=== PATIENT | female | born 1975 | race Caucasian/White ===

== ENCOUNTER 2018-04-08 19:35 | Emergency (ER) | payer MEDICAID ==
[~2018-04-08] VITALS: Ht 157.5 cm; Wt 93.2 kg
[2018-04-08 19:43] VITALS: Ht 157.5 cm; Wt 93.2 kg
[2018-04-08] MEDS ORDERED: GABAPENTIN100 MG PO (19:44)
[2018-04-08] MEDS ORDERED: ULTRAM50 MG PO (19:44)
[2018-04-08] MEDS ORDERED: PROTONIX40 MG PO (19:45)
[2018-04-08] MEDS ORDERED: ATIVAN1 MG PO (19:45)
[2018-04-08 22:37] LABS: HCG URINE NEGATIVE (NEGATIVE)
[2018-04-08 22:40] LABS: APPEARANCE CLEAR (CLEAR); BILIRUBIN NEGATIVE (NEGATIVE); COLOR YELLOW (YELLOW); GLUCOSE NEGATIVE (NEGATIVE); KETONE NEGATIVE (NEGATIVE); NITRITE NEGATIVE (NEGATIVE); PROTEIN NEGATIVE (NEGATIVE); UROBILINOGEN NORMAL (NORMAL)
[2018-04-08 22:41] LABS: BACTERIA FEW /hpf (NONE SEEN); RED CELLS - URINE 0-5 /hpf (0-5); WHITE CELLS - URINE 0-5 /hpf (0-5)
[2018-04-08 22:42] LABS: CALCIUM OXALATE CRYSTALS 0-5 /hpf (NONE SEEN)
[2018-04-08 23:09] LABS: UDS - AMPHET NEGATIVE QUAL (NEGATIVE); UDS - BARB NEGATIVE QUAL (NEGATIVE); UDS - BENZO NEGATIVE QUAL (NEGATIVE); UDS - COCAINE NEGATIVE QUAL (NEGATIVE); UDS - OPIATE NEGATIVE QUAL (NEGATIVE); UDS - PCP NEGATIVE QUAL (NEGATIVE); UDS - THC POSITIVE QUAL (NEGATIVE)
[2018-04-08 23:15] LABS: BASOPHILS 0.3 % (0-2); EOSINOPHILS 2.8 % (0-7); HEMATOCRIT 40.3 % (36.0-48.0); HEMOGLOBIN 13.8 g/dL (12-16); IMMATURE GRANULOCYTES 0.3 % (0-5); LYMPHOCYTES 33.6 % (15-50); MCH 31.7 pg (26.0-34.0); MCHC 34.2 g/dL (31.0-37.0); MCV 92.4 fL (80.0-100.0); MEAN PLATELET VOLUME 10.4 fL (7.4-10.4); MONOCYTES 6.7 % (2-11); NEUTROPHILS 56.3 % (40-80); PLATELET COUNT 247 10x3/uL (130-400); RBC 4.36 10x6/uL (4.00-5.40); RDW 11.9 % (11.5-14.5); WBC 11.9 10x3/uL (4.8-10.8)
[2018-04-08 23:33] LABS: ALBUMIN 3.6 g/dL (3.4-5.0); ALKALINE PHOSPHATASE 49 U/L (46-116); ALT (SGPT) 32 U/L (10-68); BILIRUBIN - TOTAL 0.22 mg/dL (0.2-1.3); CALC OSMOLALITY 278 mosm/kg (275-300); CALCIUM 8.8 mg/dL (8.5-10.1); CHLORIDE - SERUM 102 mmol/L (98-107); CREATININE - SERUM 0.7 mg/dL (0.6-1.3); GLUCOSE 140 mg/dL (74-106); PROTEIN - SERUM 7.1 g/dL (6.4-8.2); SODIUM 139 mmol/L (136-145); UREA NITROGEN 9 mg/dL (7-18); eGFR NON AFRICAN AMERICAN > 90 mL/min (90-120)
[2018-04-09] MEDS ORDERED: DICLOFENAC SODI50 MG PO (01:13)
[2018-04-09 01:45] VITALS: BP 136/80
== END 2018-04-09 01:45 | disposition home or self-care (01) ==
LOC: D.ER 19:35
PROVIDERS: Family Medicine
DX: N93.8 Other specified abnormal uterine and vaginal bleeding (principal); R10.31 Right lower quadrant pain; I10 Essential (primary) hypertension; F17.200 Nicotine dependence, unspecified, uncomplicated

== ENCOUNTER 2018-08-29 00:50 | Observation (INO) | payer SELFPAY ==
[2018-08-29] VITALS (11 sets, daily range): BP systolic 105–149; BP diastolic 58–85; Ht 157.5 cm; Wt 89.5 kg
[~2018-08-29] VITALS: Ht 157.5 cm; Wt 89.5 kg
[~2018-08-29 00:50] MED LIST: ATIVAN1 MG PO; DICLOFENAC SODI50 MG PO; GABAPENTIN100 MG PO; PROTONIX40 MG PO; ULTRAM50 MG PO
[2018-08-29 01:23] LABS: BASOPHILS 0.4 % (0-2); EOSINOPHILS 2.9 % (0-7); HEMATOCRIT 43.1 % (36.0-48.0); HEMOGLOBIN 14.8 g/dL (12-16); IMMATURE GRANULOCYTES 0.1 % (0-5); LYMPHOCYTES 35.5 % (15-50); MCH 30.7 pg (26.0-34.0); MCHC 34.3 g/dL (31.0-37.0); MCV 89.4 fL (80.0-100.0); MONOCYTES 6.5 % (2-11); NEUTROPHILS 54.6 % (40-80); PLATELET COUNT 229 10x3/uL (130-400); RBC 4.82 10x6/uL (4.00-5.40); WBC 11.2 10x3/uL (4.8-10.8)
[2018-08-29 01:52] LABS: APPEARANCE CLEAR (CLEAR); BILIRUBIN NEGATIVE (NEGATIVE); COLOR YELLOW (YELLOW); GLUCOSE NEGATIVE (NEGATIVE); KETONE NEGATIVE (NEGATIVE); NITRITE NEGATIVE (NEGATIVE); PROTEIN NEGATIVE (NEGATIVE); SPECIFIC GRAVITY 1.015 (1.005-1.020); UROBILINOGEN NORMAL (NORMAL)
[2018-08-29 01:53] LABS: HCG URINE NEGATIVE (NEGATIVE)
[2018-08-29 02:04] LABS: ALBUMIN 3.8 g/dL (3.4-5.0); ALKALINE PHOSPHATASE 41 U/L (46-116); ALT (SGPT) 28 U/L (10-68); BILIRUBIN - TOTAL 0.31 mg/dL (0.2-1.3); CALC OSMOLALITY 280 mosm/kg (275-300); CALCIUM 8.3 mg/dL (8.5-10.1); CARBON DIOXIDE 22.6 mmol/L (21.0-32.0); CHLORIDE - SERUM 106 mmol/L (98-107); CREATININE - SERUM 0.8 mg/dL (0.6-1.3); GLUCOSE 124 mg/dL (74-106); POTASSIUM - SERUM 3.9 mmol/L (3.5-5.1); PROTEIN - SERUM 6.9 g/dL (6.4-8.2); SODIUM 141 mmol/L (136-145); UREA NITROGEN 11 mg/dL (7-18); eGFR NON AFRICAN AMERICAN 84 mL/min (90-120)
[2018-08-29 02:07] LABS: AMYLASE - SERUM 24 U/L (25-115); LIPASE 92 U/L (73-393); TROPONIN-I < 0.017 ng/mL (0.000-0.060)
--- NOTE | 2018-08-29 03:18 | NUR ---
PT GIVEN WARM BLANKETS.
--- NOTE | 2018-08-29 05:25 | NUR ---
ULTRASOUND AT PT'S BEDSIDE TO DO STUDY.
[2018-08-29 07:02] LABS: INR 0.99 (0.85-1.17); PROTIME 12.6 SECONDS (11.6-15.0)
--- NOTE | 2018-08-29 07:50 | NUR ---
Pt received by wheelchair from ER. she is awake/alert and able to walk to bathroom and change into hospital gown. Sig other is at her side.
[2018-08-29] MEDS ORDERED: METFORMIN HCL500 M1 PO (07:53)
--- NOTE | 2018-08-29 08:00 | NUR ---
Pt turns self on to right side, state that feels better when some kind of pressure is applied. States that she began hurting yesterday midmorning and pain has continued. shows that lower right quad and groin area is where she feels a sharp stabbing pain that she rates at 8/10. Area is soft to touch and denies pain with touch.VSS as charted on flowsheet, IV to right AC with NS infusing at 125ml/hr, pt instructed to keep arm straight otherwise fluid would not infuse. Sig other ask when surgery would happen and expresses his frustration that would not be immediate stating that they have been here in ER since 0100 and why should she have hurt any longer. He does state he understands that it is out of Dr Park or Nurses control. Pt sleeping now, will return to finish assessment.
--- NOTE | 2018-08-29 09:37 | NUR ---
IV to right AC continue to alarm occ. Pt agreeable to having IV resited. Attempted by this rn to R hand with 20gauge but unsuccessful. Arcadio rn to room per nurses request.
--- NOTE | 2018-08-29 09:45 | NUR ---
IV RESITED TO R WRIST PER lIiana JAUREGUI RN, 20GAUGE CATH USED AND NS INFUSING ORDERED.
--- NOTE | 2018-08-29 09:50 | NUR ---
IV TO RIGHT AC REMOVED WITH CATH INTACT.
--- NOTE | 2018-08-29 11:45 | NUR ---
CONSENTS FOR SURGERY, ANESTHESIA AND BLOOD OBTAINED
--- NOTE | 2018-08-29 11:47 | NUR ---
warm blanket provided per pt request. she places it on her abdomen. rates pain at 8/10.
--- NOTE | 2018-08-29 11:56 | NUR ---
PAIN MED OFFERED AND EXPLAINED ROUTE OF DELIVERY. SHE IS AGREEABLE AND TURNS TO HER LEFT SIDE. DEMEROL/PHENERGAN GIVEN IM ORDERED AND SCANNED TO EMAR. PT SPOUSE LEAVES ROOM AFTER PAIN MED HAS BEEN GIVEN, REQUESTING THAT HE BE CALLED BEFORE SHE IS TAKEN TO SURGERY.
--- NOTE | 2018-08-29 12:18 | NUR ---
DR BUCHANAN AT BEDSIDE TALKING WITH PT ABOUT US/CT FINDINGS AND WHEN SHE MAY BE TAKEN TO SURGERY. MD GIVES PATIENT OPTION OF REMAINING NPO AND DOING PROCEDURE WHEN OR WAS AVAILABLE LETTING HER KNOW THAT COULD BE LATER TONIGHT, OR WAITING UNTIL AM TO PROCEDE WHICH THEN SHE WOULD BE ABLE TO EAT AND BE NPO AFTER MIGNIGHT. PT STATES IF PAIN IS KEPT UNDER CONTROL SHE WOULD PREFER SOONER RATHER THAN LATER AND UNDERSTANDS THAT SHE CANNOT EAT OR DRINK UNTIL AFTER PROCEDURE. NEW ORDERS RECEIVED TO CHANGE IV FLUIDS AND ALLOW PT TO HAVE GLYCERIN SWABS DESIRED.
--- NOTE | 2018-08-29 13:05 | NUR ---
PT NOTED TO BE RESTING WITH EYES CLOSED AND RESP EVEN, NO DISTRESS NOTED. LEFT UNDISTURBED AT THIS TIME WITH SIDE RAILS UP X 2 AND CALL LIGHT WITH IN HER REACH.
--- NOTE | 2018-08-29 14:45 | NUR ---
FAMILY MEMBER TO DESK REQUESTING NURSE TO ROOM, UPON ENTERING ROOM PT QUESTIONS IF THERE HAD BEEN AN UPDATE FROM SURGERY ABOUT WHEN HERS WOULD BE. SURGERY NOTIFIED THRU RECOVERY ROOM AND SPOKE WITH KENTON, WAS INFORMED THAT A CASE THAT WAS SCHEDULED INFRONT OF MS RAMOS WAS ABOUT TO START BUT IT COULD BE A 2 HOUR OR 4+HOUR SURGERY. PT AND DR BUCHANAN GIVEN THIS INFORMATION. PT SPOUSE VOICES HIS FRUSTRATION BUT DENIES WANTING TO SPEAK WITH TRAINING AND DEVELOPMENT OFFICER WHICH WAS OFFERED BY THIS RN.
--- NOTE | 2018-08-29 16:28 | NUR ---
PAIN MED GIVEN REQUESTED. SHE RATES PAIN AT 7/10 BUT DOES STATE SHE WAS ABLE TO GET RELIEF AND ACTUALLY SLEEP AFTER LAST INJECTION. FAMILY MEMBER AT BEDSIDE. SIDE RAILS UP X 2 WITH PHONE AND CALL LIGHT IN REACH.
--- NOTE | 2018-08-29 18:20 | NUR ---
surgery calls with request to preop patient.
--- NOTE | 2018-08-29 18:30 | NUR ---
pre op meds given as charted on emar. scd's bilat and iv fluids changed to LR with bolus started. preop checklist completed and or crew members at bedside. pt taken to surgery via bed. Spouse to stay in room and understands that Dr Park would be in to speak to him after surgery has completed.
--- NOTE | 2018-08-29 21:08 | NUR ---
RECEIVED FROM RECOVERY TO 1273. PT. AWAKE AT INTERVALS. REPORT RECEIVED. PRESENT IV OF LR NOTED IN RT WRIST AREA. NO REDNESS NOR EDEMA AT IV SITE. PUNCTURE WOUNDS X3 FROM LAP EXAM NOTED ON ABD.NO DRAINAGE NOTED FROM SITES. NO VAGINAL BLEEDING NOTED AT THIS TIME. O2 PER NASAL CANNULA NOTED AT 2L/MIN. VITAL SIGNS OBTAINED. FOB AND FAMILY MEMBERS IN ROOM TO SEE PT. SIDE RAILS UP X 2 AND CALL LIGHT WITHIN REACH.
--- NOTE | 2018-08-29 21:10 | NUR ---
ICE WATER PROVIDED TO PT. IVAC PUMP TO ROOM AND IV OF LR CONNECTED TO PUMP AT 125CC/HR. PT. TAKING SIPS OF WATER WITHOUT DIFFICULTY. DENIES ANY NAUSEA.
--- NOTE | 2018-08-29 21:28 | NUR ---
SPOUSE TO DESK REQUESTING JELLO FOR PT. STATES SHE TRIED TO EAT HAMBURGER BUT FELT SHE COULDN'T CHEW THE BREAD. INFORMED THAT PT'S MOUTH PROBABLY DRY FROM MEDS AND SPOUSE STATES THAT IS WHAT THE PT. INDICATED. JELLO PROVIDED.
--- NOTE | 2018-08-29 21:40 | NUR ---
PT UP TO RESTROON. + VOID NOTED AT THIS TIME. PT TOLERATED WELL. IV SITE REMAINS PATNET AT THIS TIME. PT BACK TO BED AND EATING HAMBURGER. SIDERAILS UP FOR SAFETY X2. CALL LIGHT IN PT REACH. Chapo MIRANDA RN
--- NOTE | 2018-08-29 22:06 | NUR ---
PT RESTING AT THIS TIME. STATES THAT SHE FEELS WEIRD AFTER EATING THE HAMBURGER. SHE DENIES NAUSEA. WILL CONTINUE TO [facility]. Chapo MIRANDA RN
--- NOTE | 2018-08-29 23:17 | NUR ---
TALKING WITH MOTHER ON PHONE. STATES SHE IS SLEEPY AND DESIRES TO SLEEP. ABD. SOFT TO TOUCH AND NO DRAINAGE NOTED FROM PUNCTURE WOUNDS ON ABD. PT. CONTINUES TO ASK TO GO OUTSIDE TO SMOKE. INFORMED THAT SHE HAS STILL GOT NARCOTIC ON BOARD AND IS DROWSY AND IT IS A SAFETY CONCERN FOR HER. PT. AWAKE ONLY BRIEFLY.
--- NOTE | 2018-08-29 23:33 | NUR ---
ADULT HISOTRY COMPLETED. PT. SLEEPING AT INTERVALS.
--- NOTE | 2018-08-29 23:37 | NUR ---
SCD SLEEVES APPLIED AND CONNECTED TO PUMP. PUMP FUNCTIONAL. PT. TALKATIVE.
--- NOTE | 2018-08-29 23:56 | NUR ---
DR. BUCHANAN CALLED AND INFORMED OF PT. DESIRE FOR NICOTINE PATCH. ORDER RECEIVED.
--- NOTE | 2018-08-30 00:17 | NUR ---
PULVERIZER MILL OPERATOR NOTIFIED FOR NICOTINE PATCH ORDERED.
--- NOTE | 2018-08-30 00:35 | NUR ---
IV DISCONTINUED. INTACT CATH. TIP NOTED. SCDS DISCONNECTED FROM PUMP. PT. UP TO VOID. SMALL AMT. OF VAGINAL BLEEDING NOTED. PT. ASKING TO GO SMOKE. INFORMED THAT MD DOES NOT WANT HER OUTSIDE OR SMOKING AND THAT HER NICOTINE PATCH IS ORDERED AND SHOULD BE DELIVERED TO UNIT SOON. PT. STATES SHE WANTS TO WALK TO VENDING AREA. PT. INFORMED OF NOURISHMENTS AVAILABLE ON UNIT. PT. STATES SHE WANTS VENDING ITEMS. ESCORTED BY THIS NURSE TO VENDING AREA. GAIT STEADY.
--- NOTE | 2018-08-30 00:44 | NUR ---
PT. RETURNED TO UNIT NOT REALIZING THAT MACHINE TOOK JOHN. AGAIN OFFERED PT. ITEMS OFF UNIT BUT PT. DECLINED. BACK TO VENDING AREA.
--- NOTE | 2018-08-30 00:59 | NUR ---
PT. REMAINS OFF UNIT.
--- NOTE | 2018-08-30 01:00 | NUR ---
PT. BACK TO ROOM AND REQUESTING SANDWICH TRAY AND CHIPS WITH KARINA. PUDDING. AMBULATORY IN ROOM.
[2018-08-30 01:15] VITALS: BP 93/52
--- NOTE | 2018-08-30 01:15 | NUR ---
PT. TO DESK. ASKING FOR ICE WATER. SAME PROVIDED. PT. ASKING IF SHE SHOULD TAKE HER METFORMIN. STATES THAT SHE WAS TOLD NOT TO WORRY ABOUT IT SINCE SHE WASN'T EATING. STATES SHE USUALLY TAKES IN THE AM. INFORMED THAT DR. BUCHANAN STATED THAT HE WOULD RETURN IN EARLY AM BUT IF NECESSARY WE COULD CALL HIM IN AM ABOUT RESUMING METFORMIN. PT. STATES UNDERSTANDING.
--- NOTE | 2018-08-30 01:48 | NUR ---
UP AMBULATING TO [facility] WINDOW AND IN HALLWAY.
--- NOTE | 2018-08-30 02:55 | NUR ---
PT. TO DESK ASKING IF SHE CAN SHOWER. SUPPLIES GIVEN TO PT. FOR SHOWER. CAUTIONED PT. NOT TO TAKE HOT SHOWER BUT MORE OF A TEPID SHOWER. STATED UNDERSTANDING.
--- NOTE | 2018-08-30 03:45 | NUR ---
PT. LYING IN BED WITH SCDS ON AND FUNCTIONAL. HOB AT 30 DEGREES. PT. RELATES THAT SCDS FEEL GOOD ON LEGS. NICOTINE PATCH APPLIED TO BACK OF LT UPPER ARM. WATCHING TV AT PRESENT. T - 98.0 ORAL. PT. REPORTS THAT CHECKED HER BLOOD SUGAR AND IT WAS 173. STATES IT IS STILL A LITTLE EARLIER FOR HER METFORMIN.
--- NOTE | 2018-08-30 04:07 | NUR ---
DR. BUCHANAN CALLED AND INFORMED THAT PT. HAD CHECKED HER BLOOD SUGAR AND REPORTED THAT IT WAS 173. STATES TO GIVE PT. HER METFORMIN NOW.
--- NOTE | 2018-08-30 04:15 | NUR ---
LACQUER MIXER NOTIFIED FOR METFORMIN.
--- NOTE | 2018-08-30 04:42 | NUR ---
PT. AWAKENED FOR METFORMIN. SCDS ON AND FUNCTIONAL. SIDE RAILS UP X 2. CALL LIGHT WITHIN REACH.
[2018-08-30 06:59] LABS: BASOPHILS 0.1 % (0-2); EOSINOPHILS 0.1 % (0-7); HEMATOCRIT 41.9 % (36.0-48.0); HEMOGLOBIN 13.9 g/dL (12-16); IMMATURE GRANULOCYTES 0.2 % (0-5); MCH 30.3 pg (26.0-34.0); MCHC 33.2 g/dL (31.0-37.0); MEAN PLATELET VOLUME 11.5 fL (7.4-10.4); MONOCYTES 4.2 % (2-11); NEUTROPHILS 83.4 % (40-80); PLATELET COUNT 201 10x3/uL (130-400); RBC 4.58 10x6/uL (4.00-5.40); RDW 11.9 % (11.5-14.5); WBC 12.7 10x3/uL (4.8-10.8)
[2018-08-30 07:02] LABS: MCV 91.5 fL (80.0-100.0)
[2018-08-30 07:08] LABS: CALC OSMOLALITY 277 mosm/kg (275-300); CALCIUM 8.6 mg/dL (8.5-10.1); CARBON DIOXIDE 23.4 mmol/L (21.0-32.0); CHLORIDE - SERUM 105 mmol/L (98-107); CREATININE - SERUM 0.8 mg/dL (0.6-1.3); GLUCOSE 121 mg/dL (74-106); POTASSIUM - SERUM 4.4 mmol/L (3.5-5.1); SODIUM 139 mmol/L (136-145); UREA NITROGEN 9 mg/dL (7-18); eGFR NON AFRICAN AMERICAN 84 mL/min (90-120)
[2018-08-30 07:32] VITALS: BP 133/81
--- NOTE | 2018-08-30 07:32 | NUR ---
RECEIVED PT SITTING UP IN BED. VSS. HRRR WITHOUT AUDIBLE MURMUR. BBS CLEAR. BS X 4. ABDOMEN SOFT/NON-DISTENDED. 3 LAP INCISIONS TO ABDOMEN. INCISION TO UMB WITH OLD, DRIED BLOODY DRAINAGE. SMALL AMT OF SEROSANGUINOUS VAGINAL DISCHARGE NOTED ON PERIPAD. NO REDNESS OR SWELLING NOTED TO INCISIONS. NEG HOMANS' SIGN. PPP. MILD NON-PITTING EDEMA NOTED TO BLE. SR UP X 2. CALL LIGHT IN REACH.
--- NOTE | 2018-08-30 07:39 | NUR ---
PT C/O INCISIONAL PAIN OF "6" ON 0-10 PAIN SCALE. PERCOCET 5/325 2 TABS GIVEN PO ORDERED. PT INSTRUCTED ON MED. VERBALIZES UNDERSTANDING.
[2018-08-30] MEDS ORDERED: IBUPROFEN800 MG PO (08:28)
[2018-08-30] MEDS ORDERED: PERCOCET 5-3251 TAB PO (08:29)
--- NOTE | 2018-08-30 08:45 | NUR ---
DISCHARGE INSTRUCTIONS GIVEN TO PT. PT VERBALIZES UNDERSTANDING OF ALL INSTRUCTIONS. COPIES GIVEN TO PT. PT GIVEN RX FOR PERCOCET AND MOTRIN. PT PREPARES FOR DISCHARGE.
--- NOTE | 2018-08-30 08:50 | NUR ---
PT READY FOR DISCHARGE. DISCHARGED IN STABLE CONDITION VIA WHEELCHAIR TO PRIVATE VEHICLE.
--- NOTE | 2018-08-31 14:21 | DS ---
PATIENT:MARISOL RAMOS :79 MEDICAL RECORD: [id number] DISCHARGE SUMMARY ADMISSION DATE: 08/29/18 DISCHARGE DATE: 08/30/18 DATE OF ADMISSION: 08/29/2018. DATE OF DISCHARGE: 08/30/2018. ADMISSION DIAGNOSES: Abdominal pain. DISCHARGE DIAGNOSES: 1. Hematometrium. 2. Pelvic inflammatory response. ATTENDING: Andreina Buchanan MD PROCEDURE PERFORMED WHILE HOSPITALIZED: 1. Diagnostic laparoscopy with peritoneal biopsy and culture of pelvic fluid. 2. Dilation and curettage. HISTORY OF PRESENT ILLNESS: See the H&P in the chart. SUMMARY OF HOSPITALIZATION: The patient was admitted to the hospital and underwent procedure. At the time of the procedure, some inflammatory changes were noted at the right cornual region and then biopsies were taken of the uterine serosa. Fluid contained within the cul-de-sac was cultured and sent. The D&C gave evidence of hematometrium. The patient tolerated these procedures well and at the time of discharge, is tolerating regular diet, no longer has the severe pain that led to her hospitalization. The patient has been given Percocet and ibuprofen for her pain management. Standard postoperative precautions have been reviewed with her and she will follow up in the clinic in 1 week. TRANSINT:[id number] Voice Confirmation ID: [id number] DOCUMENT ID: [id number] ANDREINA BUCHANAN MD at 1421 CC: [id number] DICTATION DATE: 08/30/18 07 SCIENCE CONSULTANT: 08/31/18 0116 DIS IN 08/30/18 [id number] [place] [address]
--- NOTE | 2018-08-31 14:21 | OP ---
PATIENT NAME: MARISOL RAMOS MEDICAL RECORD: [id number] :79 LOCATION:[facility].1273 ADMISSION DATE:08/29/18 SURGEON: JEREMI BUCHANAN MD DATE OF OPERATION: 08/29/2018 PREOPERATIVE DIAGNOSES: 1. Right lower quadrant pain. 2. Intrauterine mass. POSTOPERATIVE DIAGNOSES: 1. Necrotic right cornual mass of uterus. 2. Inflammatory pelvic response. 3. Hematometrium. PROCEDURES PERFORMED: 1. Diagnostic laparoscopy. 2. Peritoneal biopsy. 3. Culture of peritoneal fluid. 4. Dilation and curettage. SURGEON: Jeremi Buchanan MD SOCK LINING STITCHER: Hubert Pisano. ANESTHESIA: General. FINDINGS: Uterus is enlarged and boggy. There is a proximal mass to the interrupted tube of the right cornual region. The base is necrotic. There was necrotic debris attached to the right rios region and the abdominal wall. There is also blood-tinged fluid in the cul-de-sac. No purulent material or overt findings consistent with PID is encountered. At the time of D and C, the cervix is noted to be stenotic and old blood is removed with scant tissue at the time of D and C. SPECIMENS REMOVED: 1. Peritoneal biopsy. 2. Uterine serosal biopsy. 3. Endometrial curetting. SPECIMEN DISPOSITION: All specimens to pathology. ESTIMATED BLOOD LOSS: Less than or equal to 50 cc. FLUIDS: 1200 cc lactated Ringer's. URINE OUTPUT: 100 cc clear urine. COMPLICATIONS: None. DRAIN: Tee to gravity, discontinued in PACU. INDICATIONS: The patient is a 42-year-old female who presents to the Emergency Room with intense right lower quadrant pain. The patient states that she has had an ablation in the past and has recently begun developing bleeding with intense cramps. Ultrasound shows what is believed to be a possible intrauterine OPERATIVE REPORT [id number] MARISOL RAMOS ; however, the patient has tubal ligation and a negative hCG. The patient was consented for diagnostic laparoscopy and D and C. DESCRIPTION OF PROCEDURE: After informed consent was assured, the patient was taken to the operating room where anesthetic was obtained and she was placed in Sumit stirrups. The patient is now prepped and draped and Tee catheter started. Attention was directed to the abdomen where an incision was made and a pneumoperitoneum was developed through a bladeless trocar. After pneumoperitoneum has developed, the patient was placed in Trendelenburg position and accessory ports were placed in the midline and the right lower quadrant. A blunt probe was inserted and the uterus was manipulated with the above findings. Graspers were inserted and the necrotic tissue attached to the uterus at the right cornual region and the proximal mass on the tube was removed. A serosal biopsy was taken at the base of what appears to be a fibroid. All specimens were sent to pathology. Cultures are now obtained of the bloody fluid in the cul-de-sac. With manipulation of the cornual mass, some bleeding occurs and this was cauterized with Bovie cautery. The operative field was noted to have adequate hemostasis and pneumoperitoneum was released as the accessory trocars were removed. The midline and right lower quadrant sites were closed with a subcuticular stitch. The primary trocar was now removed and the primary site closed. Dermabond was applied. The legs were positioned for the vaginal portion of this case. An operative speculum was now introduced, the cervix was identified, grasped with a single tooth tenaculum. The cervix was noted to be stenotic and using a small dilator, serial dilation began so a #2 curette can be inserted. This curette was inserted gently to the fundus and traction applied against the uterine wall and as the instrument was withdrawn, scant tissue and moderate amount of dark old blood removed. All specimens sent to pathology. The single tooth tenaculum was removed. Puncture sites noted to be hemostatic. Sponge, lap, needle counts were correct times 2 at the close of this procedure. TRANSINT:[id number] Voice Confirmation ID: [id number] DOCUMENT ID: [id number] JEREMI BUCHANAN MD at 1421 CC: [id number] DICTATION DATE: 08/29/182024 LICENSED AUDIOLOGIST: 08/30/18 0829 DIS IN 08/30/18 [address] [id number] [place] [id number]
== END 2018-08-30 08:50 | disposition home or self-care (01) ==
LOC: D.ER 00:50 → D.LD 06:49 → OBSVTIME 06:49 → D.LD 08-30 08:50
PROVIDERS: Family Medicine; ADMIT Obstetrics & Gynecology; ATTEND Obstetrics & Gynecology
DX: N73.9 Female pelvic inflammatory disease, unspecified (principal); N85.7 Hematometra; E11.9 Type 2 diabetes mellitus without complications; I10 Essential (primary) hypertension; F41.9 Anxiety disorder, unspecified

== ENCOUNTER 2019-03-22 06:50 | Day surgery (SDC) | payer BC ==
[2019-03-18 12:43] LABS: HEMATOCRIT 42.1 % (36.0-48.0); HEMOGLOBIN 14.9 g/dL (12-16); LYMPHOCYTES 34.4 % (15-50); MCH 32.2 pg (26.0-34.0); MCHC 35.4 g/dL (31.0-37.0); MCV 90.9 fL (80.0-100.0); MEAN PLATELET VOLUME 9.9 fL (7.4-10.4); NEUTROPHILS 58.9 % (40-80); PLATELET COUNT 227 10x3/uL (130-400); RBC 4.63 10x6/uL (4.00-5.40); RDW 11.4 % (11.5-14.5); WBC 9.5 10x3/uL (4.8-10.8)
[2019-03-18 13:00] LABS: CALC OSMOLALITY 278 mosm/kg (275-300); CALCIUM 9.2 mg/dL (8.5-10.1); CARBON DIOXIDE 28.7 mmol/L (21.0-32.0); CHLORIDE - SERUM 103 mmol/L (98-107); CREATININE - SERUM 0.6 mg/dL (0.6-1.3); GLUCOSE 99 mg/dL (74-106); POTASSIUM - SERUM 4.1 mmol/L (3.5-5.1); SODIUM 140 mmol/L (136-145); UREA NITROGEN 13 mg/dL (7-18); eGFR NON AFRICAN AMERICAN > 90 mL/min (90-120)
[~2019-03-22] VITALS: Ht 157.5 cm; Wt 81.8 kg
[~2019-03-22 06:50] MED LIST changes: +ALBUTEROL SULF8.5 GM INH; +CHANTIX STARTING MON; +ELAVIL25 MG PO; +IBUPROFEN800 MG PO; +LIPITOR20 MG PO; +LYRICA50 MG PO; +METFORMIN HCL500 M1 PO; +NEURONTIN 300300 MG PO; +PERCOCET 5-3251 TAB PO; +PERCOCET 7.5/321 TAB PO; +ZANTAC300 MG PO
[2019-03-22 07:52] VITALS: BP 137/71; BMI 33.2
[2019-03-22 07:56] VITALS: BP 137/71; BMI 33.2
[2019-03-22 08:05] LABS: HCG URINE NEGATIVE (NEGATIVE)
--- NOTE | 2019-03-22 12:40 | NUR ---
PT ARRIVED VIA STRETCHER. TRANSFEREED SELF TO BED. LOWER ABDOMINAL INCISION GLUED NO BLEEDING NOTED. LEFT AC 20G IV INFUSING LR AT 150ML/HR. O2 AT 2L VIA NC. VS STABLE. PT'S STATES HER PAIN LEVEL IS A 10 BUT WANTS TO WAIT TILL SHE EATS TO RECEIVE PAIN MEDICATION. SCD'S PLACED ON PT. PT ALERT AND ORIENTED. FAMILY AT BEDSIDE. BED LOW. CL IN REACH.
--- NOTE | 2019-03-22 13:17 | NUR ---
CHECKED PT'S BS AND IT IS 112. NUBIA SEE ABOUT RESTARTING PT'S HOME MEDS.
--- NOTE | 2019-03-22 13:28 | NUR ---
SPOKE WITH DR. BUCHANAN HE STATES ONCE PT EATS LUNCH SHE CAN DISCHARGE HOME. HE STATES TO SD MONTANEZ CATH. HE ALSO STATES HE WILL BRING PAIN MEDICATION SCRIPT DOWN TO PT. DR. BUCHANAN ALSO STATED HE DOESN'T KNOW WHY THEY EVEN ADMITTED PT DOWN HERE.
--- NOTE | 2019-03-22 13:44 | NUR ---
DC'D MONTANEZ CATH. ASSISTED PT TO BATHROOM TO URINATE BUT PT WAS NOT ABLE TO. WILL TRY AGIN. PT EATING LUNCH NOW. LEFT AC 20G IV SL. ON ROOM AIR SATING 96%. BED LOW. CL IN REACH. WILL CONTINUE TO MONITOR.
--- NOTE | 2019-03-22 13:46 | NUR ---
SPOKE WITH KENTON NORMANNAIL MAKING MACHINE SETTER THAT PT NEEDS WORK EXCUSE FOR 4-G WEEKS AND SHE STATES SHE WILL GET IT.
[2019-03-22 13:48] VITALS: BP 133/65; Ht 157.5 cm; Wt 81.8 kg
--- NOTE | 2019-03-22 15:13 | NUR ---
PT STATES SHE HAS GOTTEN UP TO GO TO BATHROOM
--- NOTE | 2019-03-22 15:16 | NUR ---
PT STATES SHE HAS PEED.
[2019-03-22] MEDS ORDERED: IBUPROFEN800 MG PO (16:08)
--- NOTE | 2019-03-22 16:16 | NUR ---
WRITTEN SCRIPT FOR PERCOCET AND MOTRIN GIVEN TO PATIENT. COPY PLACED ONTO CHART.
--- NOTE | 2019-03-22 17:34 | NUR ---
PT WANTING TO GO WALK HALLWAYS. I GAVE HER THE OK. I ASKED PT IF SHE WAS READY TO BE DISCHARGED AND SHE STATES "NOT YET. I WANT TO WAIT A FEW HOURS MY IS AT HOME SLEEPING."
--- NOTE | 2019-03-22 17:44 | NUR ---
UNABLE TO OBTAIN VS. PT OFF FLOOR.
--- NOTE | 2019-03-22 17:47 | NUR ---
PT RETURNED TO ROOM.
[2019-03-22 17:52] VITALS: BP 105/64
--- NOTE | 2019-03-22 19:00 | NUR ---
RECIEVED REPORT THAT PT WILL BE DC'D HOME AND DC PAPERS READY, ONLY AWITING PT TO AWAKEN FROM SLEEP AND ALSO WAITING ON PT'S RIDE HOME.
--- NOTE | 2019-03-22 19:35 | NUR ---
PT READY FOR DC. PIV REMOVED. PIV CATH TIP INTACT. DC INSTRUCTION READ TO PT. PT VERBALIZED UNDERSTANDING. PT WHEELED OUT TO THE MAIN ENTRANCE BY SPOUSE, ALL PT'S PERSONAL BELONGINGS SENT HOME WITH PT. PT DC'D.
--- NOTE | 2019-04-15 07:14 | OP ---
PATIENT NAME: MARISOL RAMOS MEDICAL RECORD: [id number] :79 LOCATION:D[facility] ADMISSION DATE: SURGEON: ANDREINA BUCHANAN MD DATE OF OPERATION: 03/22/2019 PREOPERATIVE DIAGNOSES: 1. Dysfunctional uterine bleeding. 2. Dysmenorrhea. 3. Chronic left pelvic pain. POSTOPERATIVE DIAGNOSES: 1. Dysfunctional uterine bleeding. 2. Dysmenorrhea. 3. Chronic left pelvic pain. PROCEDURES: 1. Diagnostic laparoscopy. 2. Laparoscopic subtotal hysterectomy. 3. Bilateral salpingectomy. 4. Mini laparotomy with removal of uterus. PRIMARY SURGEON: Andreina Buchanan MD PROCESSING LEAD SURGEON: Morgan ANESTHESIOLOGIST: Dr. Blanco ANESTHESIA: General. FINDINGS: Uterus, tubes, and ovaries are unremarkable. SPECIMEN REMOVED: Uterus without cervix, bilateral tubes, and left ovary. SPECIMEN DISPOSITION: All specimens to pathology. ESTIMATED BLOOD LOSS: Less than 50 cc. FLUIDS: 1 liter of lactated Ringer's. URINE OUTPUT: 500 cc of clear urine. COMPLICATIONS: None. DRAINS: Tee to gravity, discontinued upon leaving PACU. INDICATIONS: The patient is a 43-year-old female with heavy periods that are now irregular with intense cramping. The patient also reports a chronic left-sided pain starting midcycle. The patient was consented for subtotal hysterectomy with bilateral salpingectomy and left oophorectomy. DESCRIPTION OF PROCEDURE: After informed consent was assured, the patient was taken to the operating room where anesthetic was obtained. The patient was now prepped and draped in the usual sterile fashion. An incision was made at the umbilicus to accommodate a 5-mm trocar, which was inserted without difficulty. Accessory ports were now placed in the right and left lower quadrants after the OPERATIVE REPORT [id number] MARISOL RAMOS patient has been placed in steep Trendelenburg position. With the bowel swept free of the pelvis, the right tube was elevated and using a Thunderbeat coagulation cutter, the mesosalpinx compressed, coagulated, and . The dissection was carried out over the uterine, ovarian ligaments and round ligaments. The anterior leaf of the broad ligament was opened and the bladder flap developed to the midline. The posterior tissues were now dissected free of the vascular bundle of the right side. The vessels of the right are now compressed, coagulated, and at the level of the internal os. This was repeated on the contralateral side. This time the ovary is elevated and the infundibulopelvic ligament was compressed, coagulated, and adjacent to the ovary. The dissection was carried out underneath the ovary, across the round ligament and the anterior leaf of the broad ligament was opened, developed into a bladder flap fully. The posterior tissues were dissected free of the left vascular bundle, which was identified compressed, coagulated, and to the level of the internal os. The uterus is now removed from its attachment to the cervix beginning on the left including on the right in a reverse cone. The uterus was now placed aside and the endocervical canal cauterized. The attention was now directed to the abdomen. With the release of pneumoperitoneum, an incision was made 2 fingerbreadths above the symphysis in the midline. The incision was carried down to the underlying layer of the fascia, which was opened in the midline and extended laterally. Rectus bellies were and the uterus now brought to this incision and removed. Left ovary and bilateral tubes were also removed. The fascia was closed with a running stitch nail and pneumoperitoneum reestablished. Inspection of the operative field revealed adequate hemostasis. The pelvis was copiously irrigated and irrigant removed. Interceed was now placed over the cervical stump. The pneumoperitoneum was released as the accessory trocars were removed. The primary trocar was now removed and all skin sites closed with a subcuticular stitch. Sponge, lap, needle counts were correct times 2. The patient was awakened and went to the recovery area in stable condition. TRANSINT:[id number] Voice Confirmation ID: [id number] DOCUMENT ID: [id number] ANDREINA BUCHANAN MD at 0714 CC: [id number] DICTATION DATE: 04/06/19 0754 WARRANTY MANAGER: 04/06/19 0837 [facility] 03/22/19 [id number] [place] [address]
== END 2019-03-22 19:30 | disposition home or self-care (01) ==
LOC: D.OPS 06:50 → D.PAN 09:05 → D.OPS 09:45 → D.PAN 09:45 → D.MS 12:27 → D.M3 12:52 → D.OPS 19:30
PROVIDERS: ATTEND Obstetrics & Gynecology
DX: N94.6 Dysmenorrhea, unspecified (principal); N93.9 Abnormal uterine and vaginal bleeding, unspecified; R10.2 Pelvic and perineal pain